=== PATIENT | male | born 1990 | race Hispanic/Latino ===

== ENCOUNTER 2021-11-17 01:49 | Emergency (ER) | payer OTHER ==
[~2021-11-17] VITALS: Ht 182.9 cm; Wt 84.1 kg
[2021-11-17] MEDS ORDERED: MIDAZOLAM INJ 2MG/2ML VIAL (J2250 PER 1MG) IV STA ×2 (02:44→03:06)
[2021-11-17] MEDS ORDERED: fentaNYL 100 MCG/2 ML INJECTION IV ONE (02:45)
[2021-11-17 03:01] VITALS: BP 121/73
== END 2021-11-17 04:05 | disposition home or self-care (01) ==
LOC: M ED 01:49
DX: S43.014A Anterior dislocation of right humerus, initial encounter (principal); X50.0XXA Overexertion from strenuous movement or load, initial encounter; Y92.009 Unspecified place in unspecified non-institutional (private) residence as the place of occurrence of the external cause; Y93.9 Activity, unspecified; Y99.9 Unspecified external cause status
CPT/HCPCS: 23650; 73020; 73030; 96374; 96375; 99284; J2250; J3010